=== PATIENT | female | born 1955 | race Caucasian/White ===

== ENCOUNTER 2019-06-13 14:03 | Observation (INO) ==
--- NOTE | 2019-06-13 14:27 | Emergency Department Note ---
Skin/Abscess/FB HPI - General Chief complaint: Skin/Abscess/Foreign Body Stated complaint: Left Foot Ulcer Time Seen by Provider: 06/13/19 14:08 - History of Present Illness HPI Narrative: This patient has had an ulcer on the bottom side of her left second toe for several months does not seem to be healing and Dr. willie reed thinks it may need to come off. Her blood sugars have been running a little bit high and he thought they should get controlled. - Related Data Home Medications Medication Instructions Recorded Confirmed Cetirizine [ZyrTEC] 10 mg PO DAILY 06/13/19 06/13/19 Cyclobenzaprine [Flexeril] 10 mg PO TID PRN 06/13/19 06/13/19 Insulin Aspart [Novolog] 100 unit SQ TIDCC 06/13/19 06/13/19 Insulin Glargine, Human [Lantus] 20 unit SQ BID 06/13/19 06/13/19 Metoprolol Succinate [Kapspargo 25 mg PO 06/13/19 Sprinkle] Montelukast [Singular] 10 mg PO ONCE 06/13/19 06/13/19 Polyethylene Glycol 3350 [Miralax] 17 gm PO DAILYP PRN 06/13/19 06/13/19 Sertraline [Zoloft] 25 mg PO DAILY 06/13/19 06/13/19 amLODIPine [Norvasc] 10 mg PO ONCE 06/13/19 06/13/19 metFORMIN [Glucophage] 1,000 mg PO BIDCC 06/13/19 06/13/19 Allergies Allergy/AdvReac Type Severity Reaction Status Date / Time morphine Allergy Intermediate Swelling Verified 06/13/19 14:13 naproxen Allergy Intermediate Swelling Verified 06/13/19 14:13 Paper tape AdvReac Intermediate Rash Uncoded 06/13/19 14:13 Review of Systems All systems ED: reviewed and negative except as stated. Past Medical History - Past Medical History Medical history: Reports: asthma, COPD, CVA, DM, hypertension Surgical history ED: Reports: hysterectomy - Social History smoking status: Former smoker Physical Exam Underneath the left second toe shows a small ulcer with some erythema. Limitations: no limitations General appearance: alert Head: atraumatic Eye: Present: normal appearance ENT: Present: normal exam Neck: Present: normal inspection Chest: Present: normal inspection Respiratory: Present: normal lung sounds bilaterally Cardiovascular: Present: regular rate, normal rhythm, normal heart sounds Abdominal: Present: soft. Absent: distention, tenderness Neurological: Present: alert Psychiatric: Present: normal affect Skin: Present: warm, dry Course Vital Signs Temperature 96.9 F L 06/13/19 14:04 Pulse Rate 91 H 06/13/19 14:04 Respiratory Rate 16 06/13/19 14:04 Blood Pressure 156/76 06/13/19 14:04 Pulse Oximetry (%) 98 06/13/19 14:04 Temperature 96.9 F L 06/13/19 14:04 Pulse Rate 91 H 06/13/19 14:04 Respiratory Rate 16 06/13/19 14:04 Blood Pressure 156/76 06/13/19 14:04 Pulse Oximetry (%) 98 06/13/19 14:04 Skin/Abscess/Foreign Body - MDM Narrative Medical decision making narrative: Lab work did show a blood sugar of [address] scan did not show osteomyelitis. The patient will be admitted to the hospital observation by Dr. Rees and Dr. solares will do surgery tomorrow at the toe. - Lab Data Lab results reviewed: Yes I reviewed the patient's lab results. Result diagrams: 06/13/19 14:50 06/13/19 14:50 Lab Results 06/13/19 06/13/19 Range/Units 14:50 14:50 WBC 11.5 H (4.5-11.0) K/mcL RBC 4.74 (4.00-5.20) M/mcL Hgb 15.1 H (12.0-15.0) g/dL Hct 45.6 (36.0-48.0) % POC Hct 48.0 (36.0-48.0) % MCV 96.1 (80.0-100.0) fL MCH 31.8 (26.0-34.0) pg MCHC 33.1 (31.0-36.0) g/dL RDW 13.9 (11.5-14.5) % Plt Count 364 (140-440) K/mcL MPV 8.9 (7.4-10.4) fL Gran % 60.3 (38.0-78.0) % Lymph % (Auto) 29.1 (15.5-49.0) % [place] % (Auto) 9.1 (1.0-12.0) % Eos % (Auto) 1.0 (0.0-7.0) % Baso % (Auto) 0.5 (0.0-2.0) % Gran # 6.9 (1.8-8.0) K/mcL Lymph # (Auto) 3.3 (1.5-4.8) K/mcL [place] # (Auto) 1.1 H (0.1-0.9) K/mcL Eos # (Auto) 0.1 (0.0-0.7) K/mcL Baso # (Auto) 0.1 (0.0-0.3) K/mcL POC Sodium 135 (133-145) mmol/L Sodium 135 (133-145) mmol/L POC Potassium 4.1 (3.3-5.1) mmol/L Potassium 4.2 (3.3-5.1) mmol/L POC Chloride 103 (96-108) mmol/L Chloride 99 (96-108) mmol/L Carbon Dioxide 22 (22-30) mmol/L POC Total CO2 22 (22-30) mmol/L Anion Gap 14.0 (8-16) POC BUN 21 (8-23) mg/dl BUN 19 (8-23) mg/dl Creatinine 0.6 (0.6-1.1) mg/dl POC Creatinine 0.4 L (0.6-1.1) mg/dl GFR Calculation 98 Glucose 402 H (70-105) mg/dL POC Glucose 398 H (70-105) mg/dL Calcium 9.3 (8.6-10.4) mg/dl POC WB Ioniz Calcium 1.09 L (1.16-1.32) mmol/L Total Bilirubin 0.3 (0.0-1.0) mg/dL AST 24 (0-37) U/l ALT 34 (0-40) U/l Alkaline Phosphatase 91 (39-117) U/L Total Protein 7.4 (5.9-8.4) gm/dL Albumin 3.7 (3.2-5.2) gm/dL Globulin 3.7 (2.2-3.7) gm/dL Albumin/Globulin Ratio 1.0 (1.0-2.3) Beta-Hydroxybutyrate 0.80 H (< 0.27) mmol/L - Radiology Data Radiology results reviewed: Yes I reviewed the patient's radiology results. Disposition Pt seen by REVIEW APPRAISER/PA only: No Clinical Impression: Toe ulcer Disposition: Xfer As Outpt/Obs ([facility]) Condition: Good Referrals: Dimitri Green MD [Primary Care Provider] - Time of Disposition: 16:30
[2019-06-13] MEDS ORDERED: LACTATED RINGERS 1,000 ML IV ONE (14:29)
[2019-06-13] MEDS ORDERED: VANCOMYCIN 1,000 MG in 0.9 % SODIUM CHLORIDE 250 ML IV ONE (14:29)
[2019-06-13 14:58] LABS: POC Blood Urea Nitrogen 21 mg/dl (8-23); POC CO2 22 mmol/L (22-30); POC Calcium, Ionized 1.09 mmol/L (1.16-1.32); POC Chloride 103 mmol/L (96-108); POC Creatinine 0.4 mg/dl (0.6-1.1); POC Glucose, Random 398 mg/dL (70-105); POC Potassium 4.1 mmol/L (3.3-5.1); POC Sodium 135 mmol/L (133-145)
[2019-06-13 15:25] LABS: Basophils # (Auto) 0.1 K/mcL (0.0-0.3); Basophils % (Auto) 0.5 % (0.0-2.0); Eosinophils # (Auto) 0.1 K/mcL (0.0-0.7); Granulocytes % (Auto) 60.3 % (38.0-78.0); Hematocrit 45.6 % (36.0-48.0); Hemoglobin 15.1 g/dL (12.0-15.0); Lymphocytes # (Auto) 3.3 K/mcL (1.5-4.8); Lymphocytes % (Auto) 29.1 % (15.5-49.0); Mean Cell Volume 96.1 fL (80.0-100.0); Mean Corpuscular HGB Conc 33.1 g/dL (31.0-36.0); Mean Platelet Volume 8.9 fL (7.4-10.4); Monocytes # (Auto) 1.1 K/mcL (0.1-0.9); Monocytes % (Auto) 9.1 % (1.0-12.0); Platelet Count 364 K/mcL (140-440); RBC 4.74 M/mcL (4.00-5.20); Red Cell Distribution Width 13.9 % (11.5-14.5); WBC 11.5 K/mcL (4.5-11.0)
--- NOTE | 2019-06-13 15:32 | XRay Report ---
HISTORY: Preop FINDINGS: Right diaphragm is mildly elevated. This is of undetermined etiology. The lungs are clear. Heart size and pulmonary vasculature are normal. There is no pleural effusion or evidence of adenopathy. IMPRESSION: Normal chest. Interpreted and Authenticated by: Ye Mason 06/13/19
[2019-06-13 15:33] LABS: ALT/SGPT 34 U/l (0-40); AST/SGOT 24 U/l (0-37); Albumin 3.7 gm/dL (3.2-5.2); Alkaline Phosphatase 91 U/L (39-117); Bilirubin,Total 0.3 mg/dL (0.0-1.0); Blood Urea Nitrogen 19 mg/dl (8-23); Calcium 9.3 mg/dl (8.6-10.4); Carbon Dioxide 22 mmol/L (22-30); Chloride 99 mmol/L (96-108); Globulin 3.7 gm/dL (2.2-3.7); Glomerular Filtration Rate 98; Glucose 402 mg/dL (70-105)
--- NOTE | 2019-06-13 15:39 | Cat Scan Report ---
History: Diabetic ulcer on the right second toe technique: The foot was imaged following injection of intravenous nonionic contrast scanning and axial plane at 2.5 mm intervals. Sagittal and coronal reformats were created. Radiation exposure was limited using dose reduction technology. FINDINGS: There is ulceration the skin on the plantar surface of the second toe. This is located beneath the PIP joint. There is no evidence of an abscess. The adjacent joint space appears normal. There is no evidence of osteomyelitis or septic joint. There is cellulitis and/or edema in the foot extending to the ankle. Large spurs present on the plantar surface of the calcaneus and there is a medium-size spur posteriorly. There is no associated bone erosion. A moderate amount of vascular calcification is present in the foot and around the ankle. There is mild osteoarthritis at the first metatarsal phalangeal joint. IMPRESSION: Foot ulcer and cellulitis beneath the proximal portion of the right second toe No evidence of osteomyelitis Dr. Segundo was called with the results Interpreted and Authenticated by: Ye Mason 06/13/19
--- NOTE | 2019-06-13 16:45 | Internal Med History&Physical ---
Medical - H&P: HPI Patient information: Note initiated : 06/13/19 at 4:42 pm Service Date, if different from initiated Date: [] Patient: Nicole Segovia a 64 y/o F admitted on for Left Foot Ulcer. Chief Complaint: [] History of present illness: Ms. Segovia is a 64 year old F Presents to the ED from Dr. castro's office for diabetic ulcer. Patient was referred to see Dr. castro by vandana. She is been dealing with this diabetic ulcer for a year. When seen in the office Dr. Wright day felt patient will need an amputation. Send her to the ER for evaluation was found to be severely hyperglycemic at 400. She been quite polyuric and polydipsia. She says that her sugars been 3-500 since April and of also been difficult to control of the past year with the ulcer. But she has prior to that it was typically of 7100 fasting and 150-200 twice. She denies fever chills. She did have a mild leukocytosis in the ED CT of the foot was done which showed foot ulcer and cellulitis beneath the proximal portion of the left second toe No evidence of osteomyelitis Case was discussed with Dr. Wright who would like to take her to the OR in the morning. Review of Systems: Pertinent positives as above. Denies headach e/fever/chills/nausea/vomiting/chest or abdominal pain/cough/dyspnea/diarrhea. Main 10 point review of system reviewed negative Medical - H&P: PMH Problems Reviewed: Yes Medical history: Past medical history: Diabetes COPD not on home oxygen Hypertension Depression History of stroke Surgical history: Hysterectomy Lumbar fusion Family history: Mother heart disease hypertension diabetes Father gout Social history: Patient denies tobacco Drinks alcohol rarely Ambulates independently Lives by herself Medical - H&P: Meds Home Medications Medication Instructions Recorded Confirmed Type Cetirizine [ZyrTEC] 10 mg PO DAILY 06/13/19 06/13/19 History Cyclobenzaprine [Flexeril] 10 mg PO TID PRN 06/13/19 06/13/19 History Insulin Aspart [Novolog] 100 unit SQ TIDCC 06/13/19 06/13/19 History Insulin Glargine, Human [Lantus] 20 unit SQ BID 06/13/19 06/13/19 History Metoprolol Succinate [Kapspargo 25 mg PO 06/13/19 History Sprinkle] Montelukast [Singular] 10 mg PO ONCE 06/13/19 06/13/19 History Polyethylene Glycol 3350 [Miralax] 17 gm PO DAILYP PRN 06/13/19 06/13/19 History Sertraline [Zoloft] 25 mg PO DAILY 06/13/19 06/13/19 History amLODIPine [Norvasc] 10 mg PO ONCE 06/13/19 06/13/19 History metFORMIN [Glucophage] 1,000 mg PO BIDCC 06/13/19 06/13/19 History Allergies Allergy/AdvReac Type Severity Reaction Status Date / Time morphine Allergy Intermediate Swelling Verified 06/13/19 14:13 naproxen Allergy Intermediate Swelling Verified 06/13/19 14:13 Paper tape AdvReac Intermediate Rash Uncoded 06/13/19 14:13 Medical - H&P: Exam - Constitutional Vitals: Temp Pulse Resp BP Pulse Ox 96.9 F L 91 H 16 156/76 98 06/13/19 14:04 06/13/19 14:04 06/13/19 14:04 06/13/19 14:04 06/13/19 14:04 Exam: General: Alert, Awake, No acute Distress Eyes/N/T: EOMI, PEERL, DMM Head/Neck: neck supple, normocephalic atraumatic CV: RRR, No murmurs, normal s1/s2 Pulm: Clear b/l, no wheezing/rhonchi/rales Abd: soft, nontender, +BS x4 Ext: no clubbing/cyanosis/edema. Left second toe with diabetic ulcer in the plantar aspect surrounding eschar Neuro: Alert, no focal deficits, moves all extremities, CN 2-12 grossly intact, symmetrical strength b/l upper/lower, sensations intact b/l upper/lower Skin: warm/dry Medical - H&P: Reslt - Labs CBC & Chem 7: 06/13/19 14:50 06/13/19 14:50 Labs: Short CBC 06/13/19 Range/Units 14:50 WBC 11.5 H (4.5-11.0) K/mcL Hgb 15.1 H (12.0-15.0) g/dL Hct 45.6 (36.0-48.0) % Plt Count 364 (140-440) K/mcL BMP 06/13/19 14:50 Sodium 135 Potassium 4.2 Chloride 99 Carbon Dioxide 22 BUN 19 Creatinine 0.6 Glucose 402 H Calcium 9.3 Liver Function 06/13/19 Range/Units 14:50 Total Bilirubin 0.3 (0.0-1.0) mg/dL AST 24 (0-37) U/l ALT 34 (0-40) U/l Alkaline Phosphatase 91 (39-117) U/L Albumin 3.7 (3.2-5.2) gm/dL - Impressions CT of the foot showing ulcer and evidence of cellulitis beneath Medical - H&P: A/P - Narrative A/P Narrative: A: *Left second toe diabetic foot ulcer with cellulitis: *Diabetes with hyperglycemia, uncontrolled: *COPD: *HTN: *Depression: *h/o stroke, no residual deficits: * P: -danish/tristin -Dr. ibarra for amputation in the morning -Continue home lantus (increase) & SSI -check A1c -cont home norvasc/toprol -npo after midnight - -ppx: heparin tonight, tomorrow for surgery full code
[2019-06-13 16:57] LABS: Appearance,Urine CLEAR; Bacteria,Urine 0 /hpf (0); Bilirubin,Urine NEG (NEG); Color,Urine STRAW; Glucose,Urine (UA) >=500 mg/dL (NEG); Ketones,Urine 5/TR mg/dL (NEG); Leukocyte Esterase,Urine NEG /uL (NEG); Nitrate,Urine NEG (NEG); Protein,Urine 30 mg/dL (NEG); Specific Gravity,Urine 1.043 (1.000-1.035); Urine Blood NEG mg/dL (<0.03); Urine RBC 0 /hpf (0-1); Urine Squamous Epithelial Cell < 1 /hpf (0-4); Urine WBC 1 /hpf (0-4); Urobilinogen,Urine NEG (NEG)
--- NOTE | 2019-06-13 17:27 | General Surgery Consult Note ---
History of Present Illness Patient information: Note initiated : 06/13/19 at 5:24 pm Service Date, if different from initiated Date: [] Patient: Nicole Segovia 64 y/o F admitted on for Left Foot Ulcer. Chief Complaint: [] Consult date: 06/13/19 Requesting physician: Aleks Rees (Toe amputation Left 2nd) History of present illness: 62/F referred from [facility] after treatment of sepsis due to uncontrolled diabetes and an infected LEFT 2nd toe plantar neuropathic ulcer of an deformed toe. Medications and Allergies Home Medications Medication Instructions Recorded Confirmed Type Cetirizine [ZyrTEC] 10 mg PO DAILY 06/13/19 06/13/19 History Cyclobenzaprine [Flexeril] 10 mg PO TID PRN 06/13/19 06/13/19 History Insulin Aspart [Novolog] 100 unit SQ TIDCC 06/13/19 06/13/19 History Insulin Glargine, Human [Lantus] 20 unit SQ BID 06/13/19 06/13/19 History Metoprolol Succinate [Kapspargo 25 mg PO 06/13/19 History Sprinkle] Montelukast [Singular] 10 mg PO ONCE 06/13/19 06/13/19 History Polyethylene Glycol 3350 [Miralax] 17 gm PO DAILYP PRN 06/13/19 06/13/19 History Sertraline [Zoloft] 25 mg PO DAILY 06/13/19 06/13/19 History amLODIPine [Norvasc] 10 mg PO ONCE 06/13/19 06/13/19 History metFORMIN [Glucophage] 1,000 mg PO BIDCC 06/13/19 06/13/19 History Allergies Allergy/AdvReac Type Severity Reaction Status Date / Time morphine Allergy Intermediate Swelling Verified 06/13/19 14:13 naproxen Allergy Intermediate Swelling Verified 06/13/19 14:13 Paper tape AdvReac Intermediate Rash Uncoded 06/13/19 14:13 Exam Temp Pulse Resp BP Pulse Ox 96.9 F L 87 16 160/71 97 06/13/19 14:04 06/13/19 16:41 06/13/19 14:04 06/13/19 16:41 06/13/19 16:41 - General physical appearance well developed, well nourished, no distress, no pain - Eyes PERRL, normal ocular movement - ENT normal pinna, normal mucosa, no congestion - Head Head exam IM: Present: atraumatic, normal inspection, normocephalic - Neck no masses, no bruits, trachea midline, no venous distension - Cardiovascular Cardiovascular exam IM: Present: normal rate and rhythm - Respiratory normal expansion, normal respiratory effort, clear to auscultation - Abdomen Abdomen: Present: soft, non tender, bowel sounds - Integumentary Present: other (LEFT 2nd toe King 4 neuropathic ulcer under proximal phalanx. Probes to the bone and proximally tunnels upto MPJ. ) - Neurologic Present: normal coordination, other (Diabetic peripheralneuropathy.) - Musculoskeletal Present: other (Deformed LEFT second toe. H/O hammer toe in past. Neuropathic ulcer under proximal phalanx. Probes to the bone and tunnels proximally to MPJ. Thick callus arouns edges. ) - Psychiatric Present: oriented to time, oriented to person, oriented to place, speech is normal, memory intact, other (Knowledgable and understands the current situation. ANswered allher Qs. She agrees and voluntarily consent for surgical procedure, Amputation of LEFT 2nd toe. (Transmetatarsal )) Results - Labs 06/13/19 14:50 06/13/19 14:50 Abnormal lab results 06/13/19 06/13/19 06/13/19 Range/Units 14:50 14:50 16:09 WBC 11.5 H (4.5-11.0) K/mcL Hgb 15.1 H (12.0-15.0) g/dL [place] # (Auto) 1.1 H (0.1-0.9) K/mcL POC Creatinine 0.4 L (0.6-1.1) mg/dl Glucose 402 H (70-105) mg/dL POC Glucose 398 H (70-105) mg/dL POC WB Ioniz Calcium 1.09 L (1.16-1.32) mmol/L Beta-Hydroxybutyrate 0.80 H (< 0.27) mmol/L Ur Specific [place] 1.043 H (1.000-1.035) Urine Protein 30 A (NEG) mg/dL Urine Glucose (UA) >=500 A (NEG) mg/dL Urine Ketones 5/tr A (NEG) mg/dL Diabetes panel 06/13/19 Range/Units 14:50 Sodium 135 (133-145) mmol/L Potassium 4.2 (3.3-5.1) mmol/L Chloride 99 (96-108) mmol/L Carbon Dioxide 22 (22-30) mmol/L BUN 19 (8-23) mg/dl Creatinine 0.6 (0.6-1.1) mg/dl Glucose 402 H (70-105) mg/dL Calcium 9.3 (8.6-10.4) mg/dl AST 24 (0-37) U/l ALT 34 (0-40) U/l Alkaline Phosphatase 91 (39-117) U/L Total Protein 7.4 (5.9-8.4) gm/dL Albumin 3.7 (3.2-5.2) gm/dL Calcium panel 06/13/19 Range/Units 14:50 Calcium 9.3 (8.6-10.4) mg/dl Albumin 3.7 (3.2-5.2) gm/dL Pituitary panel 06/13/19 Range/Units 14:50 Sodium 135 (133-145) mmol/L Potassium 4.2 (3.3-5.1) mmol/L Chloride 99 (96-108) mmol/L Carbon Dioxide 22 (22-30) mmol/L BUN 19 (8-23) mg/dl Creatinine 0.6 (0.6-1.1) mg/dl Glucose 402 H (70-105) mg/dL Calcium 9.3 (8.6-10.4) mg/dl Adrenal panel 06/13/19 Range/Units 14:50 Sodium 135 (133-145) mmol/L Potassium 4.2 (3.3-5.1) mmol/L Chloride 99 (96-108) mmol/L Carbon Dioxide 22 (22-30) mmol/L BUN 19 (8-23) mg/dl Creatinine 0.6 (0.6-1.1) mg/dl Glucose 402 H (70-105) mg/dL Calcium 9.3 (8.6-10.4) mg/dl Total Bilirubin 0.3 (0.0-1.0) mg/dL AST 24 (0-37) U/l ALT 34 (0-40) U/l Alkaline Phosphatase 91 (39-117) U/L Total Protein 7.4 (5.9-8.4) gm/dL Albumin 3.7 (3.2-5.2) gm/dL All other labs normal. Assessment and Plan (1) Uncontrolled type 2 diabetes mellitus with ulcer of toe Status: Acute Priority: Medium Comment: Treated with IV antibiotics at [facility] in [place], [place], be referring to [facility]. 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 Treated with iv antibiotics. Deformed toe with exposed open wound and bone at base of ulcer. Plan: Transmetatarsal amputation of Left 2nd toe. Surgery scheduled for 06/14/2019 at 10:00 hrs. Status: Acute Priority: Medium Comment: King 4 Left foot 2nd toe neuropathic plantar ulcer. (3) Sepsis within last month Status: Acute Priority: Medium Comment: Sepsis due to infected neuropathic King 4 LEFT 2nd toe plantar neuropathic ulcer with soft tissue necrosis and exposed bone in the wound.
[2019-06-13] MEDS ORDERED: DEXTROSE 50% 50 ML VIAL IV PRN (17:40)
[2019-06-13] MEDS ORDERED: 0.9 % SODIUM CHLORIDE 1,000 ML IV SCH (17:40)
[2019-06-13] MEDS ORDERED: amLODIPine 10 MG TABLET PO SCH (17:40)
[2019-06-13] MEDS ORDERED: DEXTROSE 31 GM ORAL.SUSP PO PRN (17:40)
[2019-06-13] MEDS ORDERED: POLYETHYLENE GLYCOL 3350 17 GM PACKET PO PRN (17:40)
[2019-06-13] MEDS ORDERED: cefTRIAXone 2 GM in DEXTROSE 5% IN WATER 50 ML IV SCH (17:40)
[2019-06-13] MEDS ORDERED: CYCLOBENZAPRINE 10 MG TABLET PO PRN (17:40)
[2019-06-13] MEDS ORDERED: ONDANSETRON 4 MG/2 ML VIAL IV PRN (17:40)
[2019-06-13] MEDS ORDERED: cefTRIAXone 2 GM VIAL ONE (20:07)
[2019-06-13] MEDS: 0.9 % SODIUM CHLORIDE 10 ML SYRINGE IV SCH (20:18)
[2019-06-13] MEDS: metFORMIN 500 MG TABLET PO SCH (20:26)
[2019-06-13] MEDS: INSULIN LISPRO 1 UNIT/0.01 ML UNIT SQ SCH ×2 (20:27)
[2019-06-13] MEDS: INSULIN GLARGINE, HUMAN 1 UNIT/0.01 ML SQ SCH (20:28)
[2019-06-13] MEDS ORDERED: traMADol 50 MG TABLET PO PRN (20:49)
[2019-06-13] MEDS ORDERED: HEPARIN 5,000 UNIT/ML VIAL SQ SCH (21:00)
[2019-06-13] MEDS: traMADol 50 MG TABLET PO PRN (21:43)
[2019-06-14] MEDS: INSULIN LISPRO 1 UNIT/0.01 ML UNIT SQ SCH ×6 (00:56→20:57)
[2019-06-14] MEDS: traMADol 50 MG TABLET PO PRN ×3 (03:44→21:45)
[2019-06-14] MEDS: 0.9 % SODIUM CHLORIDE 10 ML SYRINGE IV SCH ×3 (05:14→22:14)
--- NOTE | 2019-06-14 08:11 | Internal Med Progress Note ---
Medical - PN: Subj Patient information: Note initiated : 06/14/19 at 8:09 am Service Date, if different from initiated Date: [] Patient: Nicole Segovia a 64 y/o F admitted on 06/13/19 for Left Foot Ulcer. Chief Complaint: [] Interval history: Ms. Segovia is a 64 year old F Presents to the ED from Dr. castro's office for diabetic ulcer. Patient was referred to see Dr. castro by vandana. She is been dealing with this diabetic ulcer for a year. When seen in the office Dr. Adriana reed felt patient will need an amputation. Send her to the ER for evaluation was found to be severely hyperglycemic at 400. She been quite polyuric and polydipsia. She says that her sugars been 3-500 since April and of also been difficult to control of the past year with the ulcer. But she has prior to that it was typically of 7100 fasting and 150-200 twice. She denies fever chills. She did have a mild leukocytosis in the ED CT of the foot was done which showed foot ulcer and cellulitis beneath the proximal portion of the left second toe No evidence of osteomyelitis Case was discussed with Dr. ibarra who would like to take her to the OR in the morning. 06/14 Slept okay. No overnight events. No new complaints. Dr. ibarra for surgery today - Constitutional Vitals: Vital Signs Temp Pulse Resp BP Pulse Ox 97.9 F 78 20 125/66 94 06/14/19 07:02 06/14/19 03:40 06/14/19 07:02 06/14/19 07:02 06/14/19 07:02 Period Temp Pulse Resp BP Sys/H[place]andez Pulse Ox Last 24 Hr 96.9 F-98.3 F 78-91 16-20 122-173/60-146 94-98 Intake and Output 06/13/19 06/14/19 06/14/19 21:59 05:59 13:59 Intake Total 1730 455 Output Total 500 850 Balance 1230 -395 Weight 76.204 kg Intake & Output: Intake & Output 06/13/19 06/14/19 06/14/19 21:59 05:59 13:59 Intake Total 1730 455 Output Total 500 850 Balance 1230 -395 Weight 76.204 kg Intake: IV 1250 Lactated Ringers 1,000 ml @ 1000 Wide Open IV BOLUS ONE Rx#: [id number] Vancomycin 1,000 mg In Sodium 250 Chloride 0.9% 250 ml @ 250 mls/ hr IV ONCE ONE Rx#:[id number] Oral 480 455 Output: Void Amount 500 850 Other: Meal Dinner Percent of Meal Consumed 95% Feeding Ability Independent Urine Appearance Clear Clear Urine Color Bright Yellow Bright Yellow Exam: General: Alert, Awake, No acute Distress Eyes/N/T: EOMI, Head/Neck: neck supple, CV: RRR, No murmurs, Pulm: Clear b/l, no wheezing/rhonchi/rales Abd: soft, nontender, +BS x4 Ext: no clubbing/cyanosis/edema. Left second toe with diabetic ulcer in the plantar aspect surrounding eschar Neuro: Alert, no focal deficits, moves all extremities, Skin: warm/dry Medical - PN: Obj Da - Labs CBC & Chem 7: 06/13/19 14:50 06/13/19 14:50 Labs: Abnormal Lab Results 06/13/19 06/13/19 06/13/19 16:09 14:50 14:50 WBC Hgb [place] # (Auto) POC Creatinine 0.4 L Glucose 402 H POC Glucose 398 H Hemoglobin A1c 12.0 H POC WB Ioniz Calcium 1.09 L Beta-Hydroxybutyrate 0.80 H Ur Specific [place] 1.043 H Urine Protein 30 A Urine Glucose (UA) >=500 A Urine Ketones 5/tr A 06/13/19 14:50 WBC 11.5 H Hgb 15.1 H [place] # (Auto) 1.1 H POC Creatinine Glucose POC Glucose Hemoglobin A1c POC WB Ioniz Calcium Beta-Hydroxybutyrate Ur Specific [place] Urine Protein Urine Glucose (UA) Urine Ketones Meds: Medications Amlodipine Besylate (Norvasc) 10 mg PO DAILY EMILIE Atorvastatin Calcium (Lipitor) 20 mg PO QAM EMILIE Cetirizine HCl (Zyrtec) 10 mg PO DAILYP PRN PRN Reason: ALLERGIES Cyclobenzaprine HCl (Flexeril) 10 mg PO TIDP PRN PRN Reason: Pain Last Admin: 06/14/19 03:46 Dose: 10 mg Documented by: Dextrose (Dextrose 50%) 0 ml IV UD PRN PRN Reason: Hypoglycemia Diagnostic Test (Pha) (Accu-Chek) 1 each FS Q4H [facility] Last Admin: 06/14/19 04:55 Dose: 1 each Documented by: Glucose (Insta-Glucose) 15 gm PO PRN PRN PRN Reason: Hypoglycemia Ceftriaxone Sodium 2 gm/ (Dextrose) 50 mls @ 100 mls/hr IV DAILY [facility] Last Admin: 06/13/19 20:11 Dose: 100 mls/hr Documented by: Insulin Glargine (Lantus) 25 unit SQ BID [facility] Last Admin: 06/13/19 20:28 Dose: 25 units Documented by: Insulin Human Lispro (Humalog) 0 unit SQ Q4H [facility]; Protocol Last Admin: 06/14/19 04:55 Dose: Not Given Documented by: Metformin [facility] ([facility]uc[facility]) [facility] Last Admin: 06/13/19 20:26 Dose: 1,000 mg Documented by: Metoprolol Succinate (Toprol Xl) 25 mg PO DAILY [facility] Montelukast Sodium (Singular) 10 mg PO DAILY [facility] Ondansetron HCl (Zofran) 4 mg IV Q6HP PRN PRN Reason: Nausea And Vomiting Polyethylene Glycol (Miralax) 17 gm PO DAILYP PRN PRN Reason: Constipation Sertraline HCl (Zoloft) 25 mg PO DAILY [facility] Sodium Chloride (Saline Flush) 10 ml IV Q8 [facility] Last Admin: 06/14/19 05:14 Dose: Not Given Documented by: Tramadol HCl (Ultram) 50 mg PO Q6HP PRN PRN Reason: Pain Last Admin: 06/14/19 03:44 Dose: 50 mg Documented by: Medical - PN: A/P - Time Spent With Patient Total time spent is greater than 50% in coordination of care (as documented) at patient's floor/unit and/or counseling patient: - Narrative A/P Narrative: A: *Left second toe diabetic foot ulcer with cellulitis: *Diabetes with hyperglycemia, uncontrolled: A1c 12.0 *COPD: *HTN: *Depression: *h/o stroke, no residual deficits: * P: -vanco/rocephin, mrsa screen pending -Dr. ibarra for amputation this morning -Continue home lantus (increased) & SSI -cont home norvasc/toprol - -ppx: heparin last night, currently held for surgery full code Medical - PN: Qual - VTE Deep Vein Thrombosis/Pulmonary Embolism Present on Admission: No
[2019-06-14] MEDS ORDERED: ATORVASTATIN 20 MG TABLET PO SCH (09:00)
[2019-06-14] MEDS ORDERED: CETIRIZINE 10 MG TABLET PO PRN ×2 (09:00→11:19)
[2019-06-14] MEDS ORDERED: amLODIPine 10 MG TABLET PO SCH (09:00)
[2019-06-14] MEDS ORDERED: SERTRALINE 50 MG TABLET PO SCH (09:00)
[2019-06-14] MEDS ORDERED: MONTELUKAST 10 MG TABLET PO SCH (09:00)
[2019-06-14] MEDS ORDERED: METOPROLOL SUCCINATE 25 MG TAB.XL.24H PO SCH (09:00)
[2019-06-14] MEDS: metFORMIN 500 MG TABLET PO SCH ×2 (09:55→17:00)
[2019-06-14] MEDS ORDERED: BUPIVACAINE 0.5% 50 ML VIAL IJ ONE (09:55)
[2019-06-14] MEDS ORDERED: PROPOFOL 200 MG/20 ML VIAL IV ONE (10:00)
[2019-06-14] MEDS ORDERED: fentaNYL 100 MCG/2 ML VIAL IV ONE (10:00)
[2019-06-14] MEDS ORDERED: MIDAZOLAM 5 MG/5 ML VIAL IV ONE (10:00)
[2019-06-14] MEDS ORDERED: VANCOMYCIN 1,000 MG in 0.9 % SODIUM CHLORIDE 250 ML IV ONE (10:12)
--- NOTE | 2019-06-14 11:08 | Brief Operative Note ---
Date of procedure: 06/14/19 Pre-op diagnosis: Recurring Sepsis Infected DFU King 4 Left 2nd toe Post-op diagnosis: same Procedure: Left 2nd toe amputation, Through neck of metatarsal bone Primary closure. EBL 5 ml All counts of swabs, needles correct Grafts/Implants: No Anesthesia: MAC, local Findings: Non healing DFU plantar surface Left 2nd toe proximal phalanx, Exposed bone in wound base. King 4 Complications: none Surgeon: Herberth Byrd Estimated blood loss (cc): 5 Specimens Removed/Pathology: other Condition: stable Disposition: floor (Operation well tolerated.)
[2019-06-14] MEDS ORDERED: CYCLOBENZAPRINE 10 MG TABLET PO PRN (11:19)
[2019-06-14] MEDS ORDERED: DEXTROSE 31 GM ORAL.SUSP PO PRN (11:19)
[2019-06-14] MEDS ORDERED: ONDANSETRON 4 MG/2 ML VIAL IV PRN (11:19)
[2019-06-14] MEDS ORDERED: POLYETHYLENE GLYCOL 3350 17 GM PACKET PO PRN (11:19)
[2019-06-14] MEDS ORDERED: DEXTROSE 50% 50 ML VIAL IV PRN (11:19)
--- NOTE | 2019-06-14 11:34 | Discharge Summary ---
Medical - DS: Prov Patient information: Note initiated : 06/14/19 at 11:31 am Service Date, if different from initiated Date: [] Patient: Nicole Segovia 64 y/o F admitted on 06/13/19 for Left Foot Ulcer. Chief Complaint: [] Date of admission: 06/13/19 17:40 Discharge date: 06/15/19 Primary care physician: Dimitri Green Consults: 06/13/19 Consult to Physician [CONS] Stat Comment: Consulting Provider: Herberth Byrd Reason For Exam: Physician to Consult Consult to Physician [CONS] Stat Comment: Consulting Provider: Aleks Rees Reason For Exam: Physician to Consult Medical - DS: Meds - Discharge Medications Prescriptions: Doxycycline Monohydrate 100 mg PO BID #10 tab Transmission Status: Pending to [facility] Cephalexin [Keflex] 500 mg PO QID #20 ml Transmission Status: Pending to [facility] Insulin Glargine, Human [Lantus] 22 unit SQ BID #1 unit Transmission Status: Pending to [facility] Active and Home Medications: Home Medications Atorvastatin [Lipitor] 20 mg PO QAM 06/13/19 [History Confirmed 06/13/19 Last Taken 06/13/19 07:00] Cetirizine [ZyrTEC] 10 mg PO QAM 06/13/19 [History Confirmed 06/13/19 Last Taken 06/13/19 07:00] Cyclobenzaprine [Flexeril] 10 mg PO TID PRN 06/13/19 [History Confirmed 06/13/19 Last Taken 06/13/19 07:00] Insulin Aspart [Novolog] See Protocol SQ TIDCC 06/13/19 [History Confirmed 06/13/19 Last Taken 06/13/19 07:00] Insulin Glargine, Human [Lantus] 20 unit SQ BID 06/13/19 [History Confirmed 06/13/19 Last Taken 06/13/19 07:00] Metoprolol Succinate [Kapspargo Sprinkle] 25 mg PO QAM 06/13/19 [History Confirmed 06/13/19 Last Taken 06/13/19 07:00] Montelukast [Singular] 10 mg PO QAM 06/13/19 [History Confirmed 06/13/19 Last Taken 06/13/19 07:00] Polyethylene Glycol 3350 [Miralax] 17 gm PO DAILYP PRN 06/13/19 [History Confirmed 06/13/19 Last Taken 06/09/19 07:00] Sertraline [Zoloft] 25 mg PO QAM 06/13/19 [History Confirmed 06/13/19 Last Taken 06/13/19 07:00] amLODIPine [Norvasc] 10 mg PO QAM 06/13/19 [History Confirmed 06/13/19 Last Taken 06/13/19 07:00] metFORMIN [Glucophage] 1,000 mg PO BIDCC 06/13/19 [History Confirmed 06/13/19 Last Taken 06/13/19 07:00] Home Medications Atorvastatin [Lipitor] 20 mg PO QAM 06/13/19 [History Confirmed 06/13/19 Last Taken 06/13/19 07:00] Cetirizine [Zyrtec] 10 mg PO QAM 06/13/19 [History Confirmed 06/13/19 Last Taken 06/13/19 07:00] Cyclobenzaprine [Flexeril] 10 mg PO TID PRN 06/13/19 [History Confirmed 06/13/19 Last Taken 06/13/19 07:00] Insulin Aspart [Novolog] See Protocol SQ TIDCC 06/13/19 [History Confirmed 06/13/19 Last Taken 06/13/19 07:00] Metoprolol Succinate [Kapspargo Sprinkle] 25 mg PO QAM 06/13/19 [History Confirmed 06/13/19 Last Taken 06/13/19 07:00] Montelukast [Singular] 10 mg PO QAM 06/13/19 [History Confirmed 06/13/19 Last Taken 06/13/19 07:00] Polyethylene Glycol 3350 [Miralax] 17 gm PO DAILYP PRN 06/13/19 [History Confirmed 06/13/19 Last Taken 06/09/19 07:00] Sertraline [Zoloft] 25 mg PO QAM 06/13/19 [History Confirmed 06/13/19 Last Taken 06/13/19 07:00] amLODIPine [Norvasc] 10 mg PO QAM 06/13/19 [History Confirmed 06/13/19 Last Taken 06/13/19 07:00] metFORMIN [Glucophage] 1,000 mg PO BIDCC 06/13/19 [History Confirmed 06/13/19 Last Taken 06/13/19 07:00] Cephalexin [Keflex] 500 mg PO QID #20 ml 06/14/19 [Rx Last Taken Unknown] Doxycycline Monohydrate 100 mg PO BID #10 tab 06/14/19 [Rx Last Taken Unknown] Insulin Glargine, Human [Lantus] 22 unit SQ BID #1 unit 06/15/19 [Rx Last Taken Unknown] Medical - DS: Hosp Hospital Course: Ms. Segovia is a 64 year old F Presents to the ED from Dr. castro's office for diabetic ulcer. Patient was referred to see Dr. castro by vandana. She is been dealing with this diabetic ulcer for a year. When seen in the office Dr. Adriana reed felt patient will need an amputation. Send her to the ER for evaluation was found to be severely hyperglycemic at 400. She been quite polyuric and polydipsia. She says that her sugars been 3-500 since April and of also been difficult to control of the past year with the ulcer. But she has prior to that it was typically of 7100 fasting and 150-200 twice. She denies fever chills. She did have a mild leukocytosis in the ED CT of the foot was done which showed foot ulcer and cellulitis beneath the proximal portion of the left second toe No evidence of osteomyelitis Case was discussed with Dr. byrd who would like to take her to the OR in the morning. 06/14 Slept okay. No overnight events. No new complaints. Dr. byrd for surgery today Patient had amputation of the right second digit. 06/15 Overnight events. Patient doing well. Sugars better controlled. Discharge diagnosis: Diabetic right toe ulcer with infection uncontrolled diabetes Secondary discharge diagnosis: COPD hypertension depression history of stroke - Time Spent with Patient Total time spent providing and/or coordinating discharge services: Greater than 30 minutes Medical - DS: Exam - Constitutional Vitals: Vital Signs Temp Pulse Pulse Resp BP BP Pulse Ox 06/14/19 07:02 97.9 F 20 125/66 94 06/14/19 03:40 97.9 F 78 16 122/60 96 06/13/19 23:12 98.3 F 86 16 135/76 97 06/13/19 19:05 97.7 F 86 16 128/66 97 06/13/19 17:59 97.8 F 87 20 164/83 98 06/13/19 17:16 173/86 06/13/19 17:01 172/146 06/13/19 16:52 89 154/109 97 06/13/19 16:41 87 160/71 97 06/13/19 16:31 87 160/71 97 06/13/19 16:16 88 168/86 98 06/13/19 16:05 87 161/84 96 06/13/19 14:04 96.9 F L 91 H 16 156/76 98 Intake and Output 06/13/19 06/14/19 06/14/19 21:59 05:59 13:59 Intake Total 1730 455 Output Total 500 850 Balance 1230 -395 Intake: IV 1250 Lactated Ringers 1,000 ml @ 1000 Wide Open IV BOLUS ONE Rx#: [id number] Vancomycin 1,000 mg In Sodium 250 Chloride 0.9% 250 ml @ 250 mls/ hr IV ONCE ONE Rx#:[id number] Oral 480 455 Output: Void Amount 500 850 Other: Meal Dinner Percent of Meal Consumed 95% Feeding Ability Independent Urine Appearance Clear Clear Urine Color Bright Yellow Bright Yellow Weight 76.204 kg Medical - DS: Data Labs on day of discharge: Labs from last 24 hours 06/13/19 06/13/19 06/13/19 16:09 14:50 14:50 WBC RBC Hgb Hct POC Hct 48.0 MCV MCH MCHC RDW Plt Count MPV Gran % Lymph % (Auto) Harding % (Auto) Eos % (Auto) Baso % (Auto) Gran # Lymph # (Auto) Harding # (Auto) Eos # (Auto) Baso # (Auto) POC Sodium 135 Sodium 135 POC Potassium 4.1 Potassium 4.2 POC Chloride 103 Chloride 99 Carbon Dioxide 22 POC Total CO2 22 Anion Gap 14.0 POC BUN 21 BUN 19 Creatinine 0.6 POC Creatinine 0.4 L GFR Calculation 98 Glucose 402 H POC Glucose 398 H Hemoglobin A1c 12.0 H Estim Average Glucose 298 Calcium 9.3 POC WB Ioniz Calcium 1.09 L Total Bilirubin 0.3 AST 24 ALT 34 Alkaline Phosphatase 91 Total Protein 7.4 Albumin 3.7 Globulin 3.7 Albumin/Globulin Ratio 1.0 Beta-Hydroxybutyrate 0.80 H Urine Color Straw Urine Appearance Clear Urine pH 6.0 Ur Specific Weare 1.043 H Urine Protein 30 A Urine Glucose (UA) >=500 A Urine Ketones 5/tr A Urine Occult Blood Neg Urine Nitrate Neg Urine Bilirubin Neg Urine Urobilinogen Neg Ur Leukocyte Esterase Neg Urine RBC 0 Urine WBC 1 Ur Squamous Epith Cells < 1 Urine Bacteria 0 06/13/19 14:50 WBC 11.5 H RBC 4.74 Hgb 15.1 H Hct 45.6 POC Hct MCV 96.1 MCH 31.8 MCHC 33.1 RDW 13.9 Plt Count 364 MPV 8.9 Gran % 60.3 Lymph % (Auto) 29.1 Harding % (Auto) 9.1 Eos % (Auto) 1.0 Baso % (Auto) 0.5 Gran # 6.9 Lymph # (Auto) 3.3 Harding # (Auto) 1.1 H Eos # (Auto) 0.1 Baso # (Auto) 0.1 POC Sodium Sodium POC Potassium Potassium POC Chloride Chloride Carbon Dioxide POC Total CO2 Anion Gap POC BUN BUN Creatinine POC Creatinine GFR Calculation Glucose POC Glucose Hemoglobin A1c Estim Average Glucose Calcium POC WB Ioniz Calcium Total Bilirubin AST ALT Alkaline Phosphatase Total Protein Albumin Globulin Albumin/Globulin Ratio Beta-Hydroxybutyrate Urine Color Urine Appearance Urine pH Ur Specific Weare Urine Protein Urine Glucose (UA) Urine Ketones Urine Occult Blood Urine Nitrate Urine Bilirubin Urine Urobilinogen Ur Leukocyte Esterase Urine RBC Urine WBC Ur Squamous Epith Cells Urine Bacteria Medical - DS: A/P - Patient/Caregiver Discharge Instructions Activity: increase activity as tolerated Diet: Consistent Carbohydrate Prescriptions: Doxycycline Monohydrate 100 mg PO BID #10 tab Cephalexin [Keflex] 500 mg PO QID #20 ml - Follow up Plan Follow up with: Dimitri Green MD [Primary Care Provider] - Disposition: Home, Self-Care Prognosis: Fair Rehab Potential: Fair Overall status at discharge: patient is back to baseline Medical - DS: Qual - VTE Deep Vein Thrombosis/Pulmonary Embolism Present on Admission: No
[2019-06-14] MEDS ORDERED: cefTRIAXone 2 GM VIAL ONE (14:43)
[2019-06-14] MEDS: cefTRIAXone 2 GM in DEXTROSE 5% IN WATER 50 ML IV SCH (14:47)
[2019-06-14] MEDS: INSULIN GLARGINE, HUMAN 1 UNIT/0.01 ML SQ SCH ×2 (15:04→20:58)
--- NOTE | 2019-06-14 15:18 | General Surgery Progress Note ---
Subjective Patient reports: pain is less, other Narrative: Note initiated : 06/14/19 at 3:16 pm Service Date, if different from initiated Date: [] Patient: Nicole Segovia 64 y/o F admitted on 06/13/19 for Left Foot Ulcer. Chief Complaint: [] Elevation of left foot and leg helps. Objective Temp Pulse Resp BP Pulse Ox 97.1 F 80 20 156/85 97 06/14/19 12:00 06/14/19 12:00 06/14/19 12:00 06/14/19 12:00 06/14/19 12:00 Post op F/U AVSS. No changes ZEYAD. Left foot dressing CDI. Toe warm and dry. No bleeding. Post op Pain. NOT able to stand or walk Lives by herself. > [place] miles away. - Additional Data Intake & Output - Last 24 hours: Intake & Output 06/12/19 06/13/19 06/14/19 06/15/19 05:59 05:59 05:59 05:59 Intake Total 2185 Output Total 1350 Balance 835 Weight 168 lb - Labs 06/13/19 14:50 06/13/19 14:50 Diabetes panel 06/13/19 06/13/19 Range/Units 14:50 14:50 Sodium 135 (133-145) mmol/L Potassium 4.2 (3.3-5.1) mmol/L Chloride 99 (96-108) mmol/L Carbon Dioxide 22 (22-30) mmol/L BUN 19 (8-23) mg/dl Creatinine 0.6 (0.6-1.1) mg/dl Glucose 402 H (70-105) mg/dL Hemoglobin A1c 12.0 H (4.0-6.0) % HGB Calcium 9.3 (8.6-10.4) mg/dl AST 24 (0-37) U/l ALT 34 (0-40) U/l Alkaline Phosphatase 91 (39-117) U/L Total Protein 7.4 (5.9-8.4) gm/dL Albumin 3.7 (3.2-5.2) gm/dL Calcium panel 06/13/19 Range/Units 14:50 Calcium 9.3 (8.6-10.4) mg/dl Albumin 3.7 (3.2-5.2) gm/dL Pituitary panel 06/13/19 Range/Units 14:50 Sodium 135 (133-145) mmol/L Potassium 4.2 (3.3-5.1) mmol/L Chloride 99 (96-108) mmol/L Carbon Dioxide 22 (22-30) mmol/L BUN 19 (8-23) mg/dl Creatinine 0.6 (0.6-1.1) mg/dl Glucose 402 H (70-105) mg/dL Calcium 9.3 (8.6-10.4) mg/dl Adrenal panel 06/13/19 Range/Units 14:50 Sodium 135 (133-145) mmol/L Potassium 4.2 (3.3-5.1) mmol/L Chloride 99 (96-108) mmol/L Carbon Dioxide 22 (22-30) mmol/L BUN 19 (8-23) mg/dl Creatinine 0.6 (0.6-1.1) mg/dl Glucose 402 H (70-105) mg/dL Calcium 9.3 (8.6-10.4) mg/dl Total Bilirubin 0.3 (0.0-1.0) mg/dL AST 24 (0-37) U/l ALT 34 (0-40) U/l Alkaline Phosphatase 91 (39-117) U/L Total Protein 7.4 (5.9-8.4) gm/dL Albumin 3.7 (3.2-5.2) gm/dL Assessment and Plan (1) Uncontrolled type 2 diabetes mellitus with ulcer of toe Problem details: Treated with IV antibiotics at [facility] in [place], [place], [facility] referring to [facility]. 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 Status: Acute Current Visit: Yes (3) Sepsis within last month Problem details: Sepsis due to infected neuropathic King 4 LEFT 2nd toe plantar neuropathic ulcer with soft tissue necrosis and exposed bone in the wound. Status: Acute Current Visit: Yes - Time Spent With Patient Total time spent is greater than 50% in coordination of care (as documented) at patient's floor/unit and/or counseling patient: Assessment: Post op visit. Satisfactory progress. S/P Left 2nd toe amputation for sepsis. Plan; EXTENDED RECOVERY. Physical Therapy consult / clearance for D/C. Repeat labs tomorrow AM. ANTICIPATE if doing well D/C home 06/15/2019 PO antibiotics Cipro and Doxy for 5 days post op. F/u at wound clinic early next week. 15 - 24 minutes
[2019-06-14 16:25] LABS: Blood Urea Nitrogen 10 mg/dl (8-23); Carbon Dioxide 28 mmol/L (22-30); Chloride 99 mmol/L (96-108); Glomerular Filtration Rate 104; Glucose 313 mg/dL (70-105)
[2019-06-14] MEDS ORDERED: INSULIN GLARGINE, HUMAN 1 UNIT/0.01 ML SQ ONE (16:36)
[2019-06-14] MEDS: HYDROcodone/APAP 5/325MG TABLET PO PRN (20:56)
[2019-06-15] MEDS: HYDROcodone/APAP 5/325MG TABLET PO PRN ×4 (01:19→14:27)
[2019-06-15] MEDS: INSULIN LISPRO 1 UNIT/0.01 ML UNIT SQ SCH ×4 (01:19→14:27)
[2019-06-15] MEDS: 0.9 % SODIUM CHLORIDE 10 ML SYRINGE IV SCH ×2 (05:54→14:27)
[2019-06-15] MEDS ORDERED: SERTRALINE 50 MG TABLET PO SCH (09:00)
[2019-06-15] MEDS ORDERED: amLODIPine 10 MG TABLET PO SCH (09:00)
[2019-06-15] MEDS ORDERED: METOPROLOL SUCCINATE 25 MG TAB.XL.24H PO SCH (09:00)
[2019-06-15] MEDS ORDERED: ATORVASTATIN 20 MG TABLET PO SCH (09:00)
[2019-06-15] MEDS ORDERED: MONTELUKAST 10 MG TABLET PO SCH (09:00)
[2019-06-15] MEDS: traMADol 50 MG TABLET PO PRN ×2 (09:32→14:28)
[2019-06-15] MEDS: metFORMIN 500 MG TABLET PO SCH (09:36)
[2019-06-15] MEDS: cefTRIAXone 2 GM in DEXTROSE 5% IN WATER 50 ML IV SCH (09:38)
[2019-06-15] MEDS: INSULIN GLARGINE, HUMAN 1 UNIT/0.01 ML SQ SCH (10:56)
--- NOTE | 2019-06-16 08:12 | Operative Note ---
DATE OF OPERATION: 06/14/2019 PREOPERATIVE DIAGNOSIS: Recurring sepsis, infected diabetic foot ulcer King 4 plantar, left middle toe proximal phalanx and middle phalanx area. POSTOPERATIVE DIAGNOSIS: Recurring sepsis, infected diabetic foot ulcer King 4 plantar, left middle toe proximal phalanx and middle phalanx area. OPERATION: Left second toe amputation through the neck of metatarsal bone. ANESTHESIA: Local with MAC. SURGEON: Herberth Byrd MD CUTTER OPERATOR TILE: Maite Londono CRNA. ESTIMATED BLOOD LOSS: 5 mL. INSTRUMENT COUNT: Count of swabs, instruments and needles was reported to be correct. INTRAOPERATIVE FINDINGS: The disease was confined to the proximal part of the toe extending up to the MP joint. Preoperative imaging, lab results were consistent with uncontrolled diabetes and soft tissue infection, without involvement of bone. PROCEDURE NOTE: After obtaining informed consent, patient was taken to the operating room. A timeout was called. Preoperative photographs were taken. The left foot, ankle, and leg were widely cleaned, prepped and draped in the standard fashion. She was placed in Trendelenburg position. Intravenous analgesia was provided by the detention deputy. Local anesthetic 0.25% Marcaine with epinephrine was injected in the incision site around and under the toe and in the interdigital spaces between the first and second and second and third toes. Incision was made with a #15 scalpel blade. It was taken sharply through the skin and subcutaneous tissues and down to the level of bone. Sharp dissection was carried out. The head of the metatarsal bone was identified, proximal to the MPJ. A small oscillating saw was used to take tis down. The vascular pedicles were clamped with hemostats. The bone was transected just proximal to the head. The vascular pedicles were individually tied with 2-0 Vicryl sutures. Sharp dissection was carried to undermine the soft tissue around the bone stump. Copious irrigation of the field was carried out with normal saline. Count of swabs, instruments and needles was verified to be correct. The soft tissue was approximated over the bone stump with interrupted sutures of 2-0 Vicryl. The skin edges and soft tissue approximated with interrupted 2-0 mattress everting sutures. Sterile dressings applied. Procedure terminated. She recovered from operation uneventfully. Taken to in stable condition. VD:jak Job ID: [id number] Doc ID: [id number] Herberth JANE
--- NOTE | 2019-06-18 12:28 | Surgical Pathology Report ---
HISTOLOGY SPECIMEN MICROSCOPIC DIAGNOSIS DIGIT, LEFT SECOND TOE, AMPUTATION: -- ULCERATED SKIN WITH NECROTIZING AND GRANULATION TISSUE INVOLVING SOFT TISSUE. -- NO ACUTE OSTEOMYELITIS IDENTIFIED. -- BONE AND SOFT TISSUE MARGINS VIABLE. (EBD:sln) CLINICAL HISTORY Non-healing ulcer left second toe. GROSS DESCRIPTION Received in formalin labeled nonhealing ulcer left second toe, is a digit measuring 4.7 cm distal to proximal by 2.2 by 2 cm. Distally there is a olivares-yellow slightly thickened nail present measuring 1.0 x 1.1 cm. On the plantar aspect of the toe approximately 0.8 cm from the proximal skin margin is an ulcerated darker olivares region measuring up to 1.5 x 1.3 cm. The remainder of the skin is olivares-jauregui with a hemorrhagic eroded region that measures 0.7 x 0.5 cm. The proximal margin consists of skin and soft tissue and this is inked black. Following decalcification a complete lead customer service representative cross section is submitted as follows: A1 - distal; A2 - proximal. (RLF:teofilo) Electronically Signed by: Michelle Alonso M.D.
== END 2019-06-15 15:00 | disposition home or self-care (01) ==
LOC: MEDSUR 14:03 → ED 14:03 → MEDSUR 17:46
PROVIDERS: ADMIT Internal Medicine; ATTEND Internal Medicine